=== PATIENT | female | born 1990 | race Hispanic/Latino ===

== ENCOUNTER 2019-03-18 08:57 | Emergency (ER) | payer SELFPAY ==
[2019-03-18] MEDS ORDERED: Ondansetron PF 4 MG/2 ML Vial ONE (09:17)
[2019-03-18 09:32] LABS: Bilirubin Negative (Negative); Blood, Urine Large (Negative); Clarity CLOUDY (Clear); Glucose, Urine (Dipstick) Negative (Negative); Leukocyte Small (Negative); Nitrite Positive (Negative); Protein, Urine (Dipstick) 30 mg/dL (Neg-Trace); Specific Gravity, Urine 1.027 (1.002-1.036)
[2019-03-18] MEDS ORDERED: Ketorolac Tromethamine 30 MG/ML VIAL ONE (09:34)
[2019-03-18 09:35] LABS: Bacteria/HPF 4+ HPF (None Seen); Hyaline Casts/LPF 4-6 HYALINE CAST LPF (0-3 Hyaline); Pathc Cast-AUWi Flag 1.22 (0-2.49); RBC/HPF GREATER THAN 50-TNTC HPF (0-3); WBC/HPF 21-50 HPF (0-3)
[2019-03-18 09:41] LABS: Pregnancy Test - Urine (BHCG) Negative (Negative); Pregu Control Background? CLEAR/WHITE (CLR/WHITE); Pregu Control Bar Appear? YES (CONTROL BAR); Specific Gravity 1.027 (1.002-1.036)
[2019-03-18 09:42] LABS: #Basophils 0.1 thou/uL (0.0-0.2); #Eosinphils 0.1 thou/uL (0.0-0.7); #Lymphocytes 2.3 thou/uL (1.20-3.40); #Monocytes 0.5 thou/uL (0.11-0.59); #Neutrophils 4.2 thou/uL (1.40-6.50); %Eosinophils 1.7 % (0.0-10.0); %Lymphocytes 32.6 % (21.0-51.0); %Monocytes 6.8 % (0.0-10.0); %Neutrophils 57.9 % (42.0-75.0); Hemoglobin 12.8 g/dL (12.0-16.0); Mean Corpuscular HGB CONC 31.7 g/dL (32.0-36.0); Mean Corpuscular Hemoglobin 31.2 pg (27.0-31.0); Mean Corpuscular Volume 98.7 fL (78.0-98.0); Mean Platelet Volume 7.8 fL (7.4-10.4); Platelet Count 268 thou/uL (130-400); RBC Distribution Width 11.6 % (11.5-14.5); Red Blood Cell (RBC) Count 4.11 mill/uL (4.20-5.40); White Blood Cell (WBC) Count 7.2 thou/uL (4.8-10.8)
[2019-03-18] MEDS ORDERED: Morphine 4 MG/ML VIAL ONE ×2 (09:47→11:18)
[2019-03-18] MEDS ORDERED: cefTRIAXone\\ROCEPHIN 2 GM VIAL ONE (09:47)
[2019-03-18 10:06] LABS: ALT (SGPT) 7 U/L (8-55); AST (SGOT) 9 U/L (5-34); Albumin 3.8 g/dL (3.5-5.0); Alkaline Phosphatase 51 U/L (40-150); Anion Gap 11 mmol/L (10-20); BUN (Urea Nitrogen) 19 mg/dL (7.0-18.7); Bilirubin, Total 0.4 mg/dL (0.2-1.2); Calc. Creatinine Clearance 0 mL/min (70-130); Carbon Dioxide 26 mmol/L (22-29); Chloride 105 mmol/L (98-107); Estimated GFR-MDRD 82; Globulin 2.5 g/dL (2.4-3.5); Glucose 89 mg/dL (70-105); Lipase 40 U/L (8-78); Potassium 3.7 mmol/L (3.5-5.1); Protein, Total 6.3 g/dL (6.0-8.3); Sodium 138 mmol/L (136-145)
--- NOTE | 2019-03-18 12:09 | CT ---
CT STONE PROTOCOL: HISTORY: Right-sided flank pain. Lower abdominal pain and nausea. FINDINGS: Absence of oral and IV contrast reduces the sensitivity of the exam, particularly for evaluation of s olid organs involved. The lung bases are clear. The patient is post cholecystectomy. No free air or free fluid is seen in the abdomen or pelvis. A normal-appearing appendix is present. Uterus and ovaries are visualized. There are tiny calculi in the kidneys. There is a 3 mm calculus at the right UVJ with mild to modera te right hydroureteral nephrosis. No calculi are seen in the left ureter. There is a tiny amount of air in the urinary bladder. Clinical correlation for recent instrumentation is recommended. Other possibilities include infection and fistulous communication. IMPRESSION: 1. Tiny bilateral renal calculi. 2. A 3 mm right ureterovesical junction calculus with obstructive uropathy. POS: [facility]
[2019-03-18] MEDS ORDERED: Levofloxacin 500 mg/D5W 100 ml Premix Bag ONE (12:10)
[2019-03-18 14:41] LABS: Bilirubin Negative (Negative); Blood, Urine Large (Negative); Clarity CLEAR (Clear); Glucose, Urine (Dipstick) Negative (Negative); Leukocyte Negative (Negative); Nitrite Negative (Negative); Protein, Urine (Dipstick) Negative (Neg-Trace); Specific Gravity, Urine 1.017 (1.002-1.036); Urobilinogen 0.2 mg/dL (0.2-1.0)
[2019-03-18 14:44] LABS: Bacteria/HPF None Seen HPF (None Seen); Hyaline Casts/LPF 0-3 HYALINE CAST LPF (0-3 Hyaline); RBC/HPF 21-50 HPF (0-3); Squamous Epithelial None Seen HPF (0-3); WBC/HPF 0-3 HPF (0-3)
[2019-03-18] MEDS ORDERED: Morphine 2 MG/ML SYRINGE ONE (15:01)
[2019-03-21 21:56] LABS: Chlamydia by PCR Inconclusive (NotDetected); GC by PCR Inconclusive (NotDetected)
== END 2019-03-18 16:29 | disposition home or self-care (01) ==
LOC: ERS 08:57
DX: N13.6 Pyonephrosis (principal); F41.9 Anxiety disorder, unspecified; F31.9 Bipolar disorder, unspecified; F17.210 Nicotine dependence, cigarettes, uncomplicated
CPT/HCPCS: 51702; 74176; 80053; 81003; 81015; 81025; 83690; 85025; 87077; 87086; 87186; 87480; 87491; 87510; 87591; 87660; 96361; 96365; 96367; 96375; 96376; A4353; J0696; J1885; J1956; J2270; J2405

== ENCOUNTER 2019-04-15 19:48 | Observation (INO) | payer SELFPAY ==
[2019-04-15] MEDS ORDERED: Ondansetron PF 4 MG/2 ML Vial ONE (20:11)
[2019-04-15 20:22] LABS: #Eosinphils 0.1 thou/uL (0.0-0.7); #Lymphocytes 1.3 thou/uL (1.20-3.40); #Monocytes 0.2 thou/uL (0.11-0.59); %Basophils 0.7 % (0.0-1.0); %Eosinophils 0.9 % (0.0-10.0); %Lymphocytes 22.4 % (21.0-51.0); %Monocytes 4.1 % (0.0-10.0); %Neutrophils 71.8 % (42.0-75.0); Hemoglobin 13.4 g/dL (12.0-16.0); Mean Corpuscular HGB CONC 31.6 g/dL (32.0-36.0); Mean Corpuscular Hemoglobin 30.9 pg (27.0-31.0); Mean Corpuscular Volume 97.6 fL (78.0-98.0); Mean Platelet Volume 7.7 fL (7.4-10.4); Platelet Count 257 thou/uL (130-400); RBC Distribution Width 11.2 % (11.5-14.5); Red Blood Cell (RBC) Count 4.33 mill/uL (4.20-5.40); White Blood Cell (WBC) Count 5.6 thou/uL (4.8-10.8)
[2019-04-15 20:30] LABS: BHCG - Serum Negative (NEGATIVE); Pregs Control Background? CLEAR/WHITE (CLR/WHITE); Pregs Control Bar Appear? YES (CONTROL BAR)
[2019-04-15 20:41] LABS: ALT (SGPT) 10 U/L (8-55); AST (SGOT) 14 U/L (5-34); Alkaline Phosphatase 49 U/L (40-150); Anion Gap 13 mmol/L (10-20); BUN (Urea Nitrogen) 15 mg/dL (7.0-18.7); Bilirubin, Total 1.1 mg/dL (0.2-1.2); Calc. Creatinine Clearance 0 mL/min (70-130); Calcium 9.1 mg/dL (7.8-10.44); Carbon Dioxide 26 mmol/L (22-29); Chloride 104 mmol/L (98-107); Estimated GFR-MDRD 59; Globulin 2.4 g/dL (2.4-3.5); Glucose 212 mg/dL (70-105); Potassium 3.4 mmol/L (3.5-5.1); Protein, Total 6.4 g/dL (6.0-8.3); Sodium 140 mmol/L (136-145)
[2019-04-15 20:43] LABS: Acetaminophen Less than 6.0 mcg/mL (10.0-30.0); Alcohol Less than 10 mg/dL (Less than 10); Salicylate Less than 8.0 mg/dL (15.0-30.0)
--- NOTE | 2019-04-15 20:44 | CT ---
CT Brain WO Con: 04/15/2019 8:05 PM CLINICAL HISTORY: Altered mental status. COMPARISON: None. FINDINGS: Hemorrhage: None. Ventricular system: Normal in size and morphology for the patient's age. Cerebral parenchyma: Basal ganglia calcifications are present bilaterally. Midline shift: None. Mass: No mass effect. Calvarium: Normal. Visualized Paranasal sinuses: Clear. IMPRESSION: No acute intracranial hemorrhage or mass effect. Basal ganglia calcifications, bilaterally, not typical for patient's age. This can be seen in setting of metabolic phenomenon. Recommend clinical correlation.
[2019-04-15 22:59] LABS: Base Excess-Venous 1.6 mmol/L (-2.0 to 3.0); Bicarbonate (HCO3v) 28.7 mmol/L (22.0-28.0); CO2 Tension (PvCO2) 56.9 mmHg (40.0-50.0); Calcium, Ionized 1.15 mmol/L (See Comments:); Chloride 106 mmol/L (98-107); Potassium 3.5 mmol/L (3.5-5.1); Sodium 142 mmol/L (138-145); T. Carbon Dioxide 30.5 mmol/L (22.0-28.0); vO2 Saturation-calc 28.3 % (60.0-85.0)
[2019-04-15 23:00] LABS: Hemoglobin A1c 5.1 % (4.0-6.0)
[2019-04-15 23:13] LABS: Bilirubin Negative (Negative); Blood, Urine Trace (Negative); Glucose, Urine (Dipstick) 100 mg/dL (Negative); Leukocyte Trace (Negative); Nitrite Positive (Negative); Protein, Urine (Dipstick) 30 mg/dL (Neg-Trace)
[2019-04-15 23:18] LABS: Bacteria/HPF 4+ HPF (None Seen); Clarity Slightly Cloudy (Clear); RBC/HPF 0-3 HPF (0-3)
[2019-04-15 23:22] LABS: Medtox Reader # READER 1
[2019-04-15 23:23] LABS: Amphetamine Detected (NotDetected); Barbiturates Screen Not Detected (NotDetected); Benzodiazepine Screen Not Detected (NotDetected); Cocaine Metabolite Screen Not Detected (NotDetected); Medtox Control Line Valid? VALID (VALID); Methadone Not Detected (NotDetected); Methamphetamine Detected (NotDetected); Opiate Screen Not Detected (NotDetected); Oxycodone Screen Not Detected (NotDetected); Phencyclidine (PCP) Not Detected (NotDetected); THC/Cannabinoid Screen Not Detected (NotDetected); Tricyclic Screen Not Detected (NotDetected)
[2019-04-15] MEDS ORDERED: Sodium Bicarbonate 150 MEQ in Dextrose 5% in Water 1,000 ML IV SCH (23:45)
[2019-04-16] MEDS ORDERED: Sodium Chloride 0.9% 1,000 ML IV SCH (01:15)
[2019-04-16 01:17] VITALS: BMI 19.5
[2019-04-16] MEDS ORDERED: Calcium Carbonate 500 MG ChewTAB PO PRN (03:24)
[2019-04-16] MEDS ORDERED: Senokot S 8.6-50 MG TAB PO PRN (03:24)
[2019-04-16] MEDS ORDERED: Acetaminophen 325 MG TAB PO PRN (03:24)
--- NOTE | 2019-04-16 03:48 | HP ---
PRIMARY CARE PHYSICIAN: [facility]. CHIEF COMPLAINT: Altered mentation. HISTORY OF PRESENT ILLNESS: The patient is a 28-year-old female who was brought in to the emergency room with altered mentation. She reported that she was walking in the heat and fell down. Rest of the details is unavailable at this time. The patient is still somnolent, however, is answering in short phrases. In the emergency room, her initial vital signs showed temperature 98.2, respirations of 16, pulse rate of 75, blood pressure of 113/70 with O2 saturation of 100% on room air. PAST MEDICAL HISTORY: Reviewed with the patient and none. PAST SURGICAL HISTORY: Cholecystectomy. PAST PSYCHIATRY HISTORY: Anxiety, bipolar disorder, and depression. The patient at this time denies any suicidal ideation. ALLERGIES: THE PATIENT IS ALLERGIC TO CODEINE. CURRENT HOME MEDICATIONS: Reviewed with the patient and none. SOCIAL HISTORY: The patient currently lives at home. She smokes up to half pack a day. She also abuses cannabis. She drinks alcohol socially. FAMILY HISTORY: The patient denies any heart disease or cancer in her family. REVIEW OF SYSTEMS: Cannot be reliably obtained from the patient due to current cognitive status. PHYSICAL EXAMINATION: VITAL SIGNS: As discussed above. GENERAL: A 28-year-old female with altered mentation. Somnolent, however, opens eyes and answers appropriately in short phrases. HEENT: Head, atraumatic and normocephalic. Sclerae anicteric. Dry mucous membranes. No oral lesion. NECK: Supple. No JVD appreciated. No carotid bruit. LUNGS: Clear to auscultation bilaterally. No wheezing, rales, or rhonchi. HEART: S1 and S2 present. Regular rate and rhythm. No rubs or gallops. ABDOMEN: Soft, nontender. Bowel sounds present. No rebound or guarding. No costovertebral angle tenderness. EXTREMITIES: No edema or calf tenderness. NEUROLOGIC: Grossly nonfocal. Moves all 4 extremities. Power was 5/5 in all extremities. Pywscm-ck-dlsp test was normal. PSYCHIATRIC: As discussed above. LYMPH NODE: No palpable lymph nodes in the neck. MUSCULOSKELETAL: No joint swelling tenderness. There is no neck stiffness. SKIN: Warm and dry. LABORATORY FINDINGS: Urine drug screen positive for methamphetamine, ketones 0.45. Urinalysis showed ketones with 11-20 wbc's and 4+ bacteria. Potassium 3.4, creatinine 1.1, BUN 15. TSH 0.1. test negative. Hemoglobin A1c 5.1. Blood sugar in the emergency room on arrival is 243. EKG by my review showed sinus rhythm with nonspecific ST-T wave changes. CT scan of the brain by my review was negative for acute findings. There was some questionable basal ganglia calcification of unclear etiology. Primary care physician advised to follow. IMPRESSION: 1. Toxic metabolic encephalopathy, multifactorial. 2. Urine drug screen positive for methamphetamines. 3. Dehydration. 4. Urinary tract infection. 5. Hypokalemia. 6. Acute kidney injury secondary to dehydration. 7. Bilateral basal ganglia calcification of unclear etiology. Primary care physician advised to follow. 8. Starvation ketosis. 9. Ongoing tobacco abuse. 10. History of cannabis abuse. PLAN: The patient will be monitored on the telemetry unit. We will obtain orthostatic vitals. Frequent neuro checks. Replace potassium. Recheck labs in a.m. Empiric antibiotics for UTI. We will add on urine culture. The patient will need counseling on drug abuse when more awake. Plan was discussed with the patient in detail. Job ID: [id number]
[2019-04-16] MEDS: Sodium Chloride 0.9% 1,000 ML IV SCH ×2 (03:56→11:37)
[2019-04-16] MEDS ORDERED: cefTRIAXone\\ROCEPHIN 1 GM in Sodium Chloride 0.9% 100 ML IVPB SCH (04:00)
[2019-04-16 12:19] LABS: Anion Gap 9 mmol/L (10-20); BUN (Urea Nitrogen) 11 mg/dL (7.0-18.7); Calc. Creatinine Clearance 87 mL/min (70-130); Calcium 8.4 mg/dL (7.8-10.44); Carbon Dioxide 26 mmol/L (22-29); Chloride 109 mmol/L (98-107); Estimated GFR-MDRD 87; Glucose 98 mg/dL (70-105); Potassium 3.3 mmol/L (3.5-5.1); Sodium 141 mmol/L (136-145)
[2019-04-16] MEDS ORDERED: Potassium Chloride 20 MEQ TAB PO SCH (12:30)
[2019-04-16 13:12] VITALS: BP 107/64; TEMP 98.3
[2019-04-16] MEDS ORDERED: Enoxaparin Sodium 30 MG/0.3 ML SYRINGE SC SCH (21:00)
--- NOTE | 2019-04-22 15:20 | EKG ---
Test Reason : Blood Pressure : / mmHG Vent. Rate : 076 BPM Atrial Rate : 076 BPM P-R Int : 108 ms QRS Dur : 098 ms QT Int : 412 ms P-R-T Axes : 023 074 050 degrees QTc Int : 463 ms Sinus rhythm with sinus arrhythmia with short OH T wave abnormality, consider anterior ischemia Prolonged QT Abnormal ECG Confirmed by OLIVE CASTELLANO DO ([id number]), supervising film or videotape editor ASHLI CRUZ ([id number] on 04/22/2019 3:20:07 PM Referred By: Confirmed By:OLIVE CASTELLANO DO
== END 2019-04-16 13:50 | disposition home or self-care (01) ==
LOC: ERS 19:48 → 2SW 04-16 00:51
PROVIDERS: ADMIT Internal Medicine; ATTEND Internal Medicine
DX: G92 Toxic encephalopathy (principal); E86.0 Dehydration; N17.9 Acute kidney failure, unspecified; N39.0 Urinary tract infection, site not specified; E87.6 Hypokalemia; G23.8 Other specified degenerative diseases of basal ganglia; E88.89 Other specified metabolic disorders; R82.5 Elevated urine levels of drugs, medicaments and biological substances; F31.9 Bipolar disorder, unspecified; F41.9 Anxiety disorder, unspecified; F17.210 Nicotine dependence, cigarettes, uncomplicated; F12.10 Cannabis abuse, uncomplicated; Z88.5 Allergy status to narcotic agent
CPT/HCPCS: 36415; 36416; 70450; 80048; 80053; 80306; 80307; 81003; 81015; 82010; 82330; 82803; 83036; 83735; 84443; 84703; 85025; 87077; 87086; 87186; 93005; 96361; 96365; 96374; 96375; G0378; J0696; J2405; J3490; J7070